=== PATIENT | male | born 1985 | race African-American/Black ===

== ENCOUNTER 2021-10-13 12:09 | Emergency (ER) | payer OTHER, SELFPAY ==
--- NOTE | 2021-10-13 12:13 | ED.WOUNDLAC ---
HPI - Wound/Laceration General Chief Complaint: Wound/Laceration Stated Complaint: Laceration on left Hand Time Seen by Provider: 10/13/21 12:15 Source: patient and RN notes reviewed History of Present Illness HPI narrative: Patient is a 35-year-old male who presents the urgent care with complaints of a laceration to the left hand. Patient states that he cut it with a utility knife trying to cut the bottom of the door. Denies of any other acute complaints or injuries. States that the laceration happened approximately 1 hour prior to arrival. No acute distress noted. Patient aware of the plan of care. Some parts of this dictation were generated by voice recognition software and may contain typographical and/or grammatical inaccuracies. Related Data Home Medications Medication Instructions Recorded Confirmed No Home Medications 10/13/21 10/13/21 Allergies Allergy/AdvReac Type Severity Reaction Status Date / Time No Known Allergies Allergy Verified 10/13/21 12:12 Review of Systems Review of Systems: CONSTITUTIONAL: Denies fever, chills, or sweats. EYES: Denies visual changes, redness, or discharge. ENT: Denies rhinorrhea, congestion, sore throat, or otalgia. CARDIOVASCULAR: Denies chest pain, palpitations, or edema. RESPIRATORY: Denies cough or dyspnea. GASTROINTESTINAL: Denies abdominal pain, nausea, vomiting, or diarrhea. GENITOURINARY: Denies dysuria or hematuria. SKIN: Reports of a laceration to the left hand MUSCULOSKELETAL: Denies back pain, joint pain, or myalgia. NEUROLOGIC: Denies headache, numbness, or weakness. All other systems reviewed are negative, except as documented in HPI. PMFSH Social History Social History Smoking status: Never smoker Alcohol intake: never Comments At the time of my signature, I reviewed and agree with the nursing past medical, surgical, social, and family history. There is no relevant family history pertinent to the patient complaint. Exam Narrative: GENERAL: This is a well-nourished, well-developed patient, in no apparent distress. HEAD: normocephalic, atraumatic. EYES: PERRL. Sclera clear/white. Vision is grossly intact. EARS: External ears normal NOSE: External nose normal with no obvious nasal discharge, nares without redness, no rhinorrhea. THROAT: Mucous membranes moist NECK: Neck supple, non-tender without lymphadenopathy, masses or thyromegaly. SKIN: 4 cm flap/puncture to the dorsal proximal left thumb. Warm, intact with no suspicious lesions or rash, good texture and turgor. NEURO: awake, alert, and oriented to person, place and time. There were no obvious focal neurologic abnormalities. EXTREMITIES: No clubbing, cyanosis, or edema. Positive strong left radial pulse with capillary refill less than 2 seconds. Range of motion to left upper extremity within normal limits. Course Course Level of Care: Express Care Visit Vital Signs Vital signs: Vital Signs Temperature 98.6 F 10/13/21 12:19 Pulse Rate 69 10/13/21 12:19 Respiratory Rate 16 10/13/21 12:19 Blood Pressure 141/78 H 10/13/21 12:19 Pulse Oximetry 100 10/13/21 12:19 Temperature 98.6 F 10/13/21 12:19 Pulse Rate 69 10/13/21 12:19 Respiratory Rate 16 10/13/21 12:19 Blood Pressure 141/78 H 10/13/21 12:19 Pulse Oximetry 100 10/13/21 12:19 Reviewed-patient is informed that they may have pre-hypertension or hypertension based on a blood pressure reading in the department. I recommend the patient call the primary care provider listed on their discharge instructions or a physician of their choice this week to arrange follow-up for further evaluation of possible pre-hypertension or hypertension. Procedures Laceration Laceration 1: Site: hand Side (If applicable): left Size (cm): 2 Description: irregular (Puncture/flap) Depth: simple, single layer Local Anesthetic: lidocaine 1% Amount of anesthesia used (mL): 1.5 Pre-rep
[2021-10-13 12:19] VITALS: BP 141/78; PULSE 69; RESP 16; TEMP 37; O2SAT 100
== END 2021-10-13 12:45 | disposition home or self-care (01) ==
PROVIDERS: Emergency Provider Nurse Practitioner Family
DX: S61.012A Laceration without foreign body of left thumb without damage to nail, initial encounter (principal); W26.0XXA Contact with knife, initial encounter
CPT/HCPCS: 12001; 99212; G0463

== ENCOUNTER 2023-04-02 09:41 | Emergency (ER) | payer SELFPAY ==
--- NOTE | 2023-04-02 09:44 | ED.UPPEXIN ---
HPI - Extremity Injury (Upper) General Chief Complaint: Wound/Laceration Stated Complaint: right elbow injury Time Seen by Provider: 04/02/23 09:43 Source: patient Mode of arrival: ambulatory Limitations: no limitations History of Present Illness HPI narrative: Patient is a 37-year-old male who presents with 2 cm laceration to right elbow no sustained on Thursday. Patient states while at work a piece of metal cut his forearm. Nurse on site Steri-Strips and bandaged. Patient states when he took the bandage off today Steri-Strips also came off. States last tetanus shot was roughly 5 years ago but denies wanting to update tetanus shot today. Related Data Allergies Allergy/AdvReac Type Severity Reaction Status Date / Time No Known Allergies Allergy Verified 04/02/23 09:55 Review of Systems Review of Systems: All systems reviewed & are unremarkable except as noted in HPI and below Constitutional: Constitutional: Denies body ache(s), Denies chills, Denies fatigue, Denies fever(s), Denies headache(s), Denies malaise and Denies weakness Eyes: Eyes: Denies blurry vision, Denies irritation and Denies loss of vision ENT: Denies otalgia, Denies headache(s), Denies nasal discharge, Denies sinus pain and Denies sore throat Cardiovascular: Cardiovascular: Denies chest pain, Denies irregular heart rhythm and Denies dyspnea Respiratory: Respiratory: Denies dyspnea Gastrointestinal: Gastrointestinal: Denies abdominal pain, Denies melena, Denies hematochezia, Denies diarrhea, Denies nausea and Denies vomiting Musculoskeletal: Musculoskeletal: Denies back pain, Denies myalgias and Denies arthralgias Integumentary/Breasts: Skin/Breast: Denies pruritus, Denies rash and Reports wounds Neurologic: Denies headache(s), Denies loss of vision and Denies weakness Psychiatric: Psychiatric: Reports no additional psychiatric complaints Endocrine: Endocrine: Denies fatigue PMFSH Social History Social History Smoking status: Never smoker Alcohol intake: never Comments At time of signature, agree with nursing past medical, surgical, social and family history. There is no relevant family history pertinent to the presenting complaint. Exam Const: General: cooperative, healthy appearing, comfortable, no acute distress and well nourished Nutritional Appearance: well nourished Orientation/consciousness: patient oriented x3 Limitations: no limitations HENMT: Head: normal to inspection, normocephalic and atraumatic Ears: hearing grossly normal bilaterally and external ears normal Face/Nose/Sinus: Normal external nose present, normal facial exam and face symmetric Face and sinus: normal facial exam and face symmetric Mouth: Yes lip normal Eyes: General: appearance normal, both eyes and all related structures Alignment and Position: alignment normal and position normal Periorbital: periorbital findings normal Eyelids: eyelids normal Pupils: Equal, round and reactive pupils present EOM: EOMs intact bilaterally Neck: Neck: normal visual inspection, full ROM and supple Chest: Chest palpation & inspection: normal inspection of the chest Resp: Effort & Inspection: normal respiratory effort and able to speak in complete sentences Auscultation: clear to auscultation bilaterally Cardio: Rate: regular rate Rhythm: regular rhythm Heart sounds: S1 normal heart sound present and S2 normal heart sound present GI: Inspection: normal to inspection Skin: General skin exam: normal color and no rashes or lesions noted Neuro: General: patient oriented x3 and moves all extremities Cranial nerves: Yes Equal, round and reactive pupils present Speech: normal speech Gait exam (Neuro): Normal gait present Extrem: General: normal to inspection, full ROM and no edema Right upper extremity: elbow/forearm laceration forearm proximal posteromedial linear (2 cm), superficial, with motor nerve function intact and with sensation intact; not actively bleeding,
[2023-04-02 09:53] VITALS: BP 122/80; PULSE 73; RESP 18; TEMP 36.5; O2SAT 98
[2023-04-02 09:55] VITALS: BP 122/80; PULSE 73; RESP 18; TEMP 36.5; O2SAT 98
== END 2023-04-02 10:40 | disposition home or self-care (01) ==
PROVIDERS: Emergency Provider Nurse Practitioner Family; PCP Family Medicine
DX: S51.011A Laceration without foreign body of right elbow, initial encounter (principal); W45.8XXA Other foreign body or object entering through skin, initial encounter; Y99.0 Civilian activity done for income or pay
CPT/HCPCS: 99213; G0463

== ENCOUNTER 2024-07-05 09:52 | Emergency (ER) | payer OTHER, SELFPAY ==
[2024-07-05 10:04] VITALS: BP 131/85; PULSE 81; RESP 16; TEMP 36.2; O2SAT 97
--- NOTE | 2024-07-05 10:35 | ED.EYEPROB ---
HPI - Eye Problem General Chief complaint: Eye Problems Stated complaint: right eye red Time Seen by Provider: 07/05/24 10:36 Source: patient, RN notes reviewed and old records reviewed Mode of arrival: ambulatory Limitations: no limitations History of Present Illness HPI Narrative: Patient presents with complaints of excessive right eye tearing and redness. He reports that he gets conjunctivitis frequently, always starts with the same symptoms. He denies any injury, trauma, foreign body, visual disturbance. He denies any a.m. matting. Voices no other concerns or complaints at this time. Has been applying drops at home, variety of drops unknown. Related Data Allergies Allergy/AdvReac Type Severity Reaction Status Date / Time No Known Allergies Allergy Verified 07/05/24 10:19 Review of Systems Review of Systems: All systems reviewed & are unremarkable except as noted in HPI and below Constitutional: Constitutional: Reports no additional constitutional complaints Eyes: Eyes: Reports as per HPI, Reports no additional eye complaints, Denies change in vision, Reports eye discharge, Reports irritation, Denies loss of vision, Denies other visual disturbances and Denies photophobia ENT: Reports system reviewed and no additional complaints, except as documented Cardiovascular: Cardiovascular: Reports no additional cardiovascular complaints Respiratory: Respiratory: Reports no additional respiratory complaints Gastrointestinal: Gastrointestinal: Reports no additional gastrointestinal complaints [facility] Social History Social History Smoking status: Never smoker Alcohol intake: never Comments At the time of my signature, I reviewed and agree with the nursing past medical, surgical, social, and family history. There is no relevant family history pertinent to the patient complaint. Exam Const: General: cooperative, no acute distress, alert and awake Orientation/consciousness: oriented to person, oriented to place and oriented to time HENMT: Head: normal to inspection Eyes: Visual Carrion: normal visual carrion by confrontation Alignment and Position: alignment normal Periorbital: periorbital findings normal Eyelids: eyelids normal Conjunctivae: conjunctival abnormality right conjunctival injection and discharge (clear) Resp: Effort & Inspection: normal respiratory effort and able to speak in complete sentences Auscultation: clear to auscultation bilaterally, no crackles, no rales, no rhonchi and no wheezes Cardio: Palpation: normal PMI Rate: regular rate Rhythm: regular rhythm Heart sounds: S1 normal heart sound present and S2 normal heart sound present Neuro: General: oriented to person, oriented to place and oriented to time Cranial nerves: Yes CN's II-XII intact bilaterally Psych: Appearance: grossly normal Thought process: Normal thought process present Insight: Good insight present (Psych) Judgement: Good judgement present (Psych) Course Course Level of Care: Express Care Visit Vital Signs Vital signs: Vital Signs Temperature 97.1 F L 07/05/24 10:04 Pulse Rate 81 07/05/24 10:04 Respiratory Rate 16 07/05/24 10:04 Blood Pressure 131/85 07/05/24 10:04 Pulse Oximetry 97 07/05/24 10:04 Oxygen Delivery Room Air 07/05/24 10:04 Temperature 97.1 F L 07/05/24 10:04 Pulse Rate 81 07/05/24 10:04 Respiratory Rate 16 07/05/24 10:04 Blood Pressure 131/85 07/05/24 10:04 Pulse Oximetry 97 07/05/24 10:04 Oxygen Delivery Room Air 07/05/24 10:04 Reviewed MDM - Eye Problem MDM Narrative Medical decision making narrative: History and exam consistent with conjunctivitis. Start at [place] drops. Follow with web services professional. Emergency department for new or worse symptoms. Discharge instructions reviewed with patient, as well as provided in writing per nursing staff. The instructions also include specific and strict return/GO TO THE ER as well as f/u information. All questions have been answered, and the patient deny any further questions with discharge and discharge plan. Some parts of this dictation were generated by voice recognition software and may contain typographical and/or grammatical inaccuracies. Differential Diagnosis Differential diagnosis: Likely corneal abrasion, conjunctivitis and subconjunctival hemorrhage Medical Records Attestation: I reviewed the patient's medical records. Discharge Plan Discharge Clinical Impression: Bacterial conjunctivitis Patient Disposition: Home, Self-Care Condition: Stable Instructions: Antibiotic Form, Conjunctivitis (ED) Additional Instructions: Use medications as prescribed. Follow with primary care provider and web services professional. Emergency department for new or worse symptoms Patient Language: Hungarian Prescriptions: New tobramycin 0.3 % drops 1 drp RIGHT EYE Q4H Qty: 5 0RF Follow-up/Referrals: PHYSICIAN,[facility]KL[facility] TECHNICIAN [Primary Care Provider] - Time of Disposition: 10:51
== END 2024-07-05 10:54 | disposition home or self-care (01) ==
PROVIDERS: Emergency Provider Nurse Practitioner Family
DX: H10.9 Unspecified conjunctivitis (principal)
CPT/HCPCS: 99213; G0463

== ENCOUNTER 2024-11-25 08:21 | Emergency (ER) | payer OTHER, SELFPAY ==
[2024-11-25 08:32] VITALS: BP 135/85; PULSE 96; RESP 16; TEMP 36.2; O2SAT 99
--- NOTE | 2024-11-25 08:39 | ED.URI ---
HPI - URI/Sore Throat General Chief Complaint: Upper Respiratory Infection Stated Complaint: sore throat,[place] Source: patient and RN notes reviewed Mode of arrival: ambulatory Limitations: no limitations History of Present Illness HPI Narrative: 38-year-old male presents to [facility] complaining of a sore throat x3 days. He denies any sick contacts. He reports also having headache and body aches. He denies any congestion, fever, ear pain, cough, chest pain, shortness of breath, difficulty swallowing. Has been taking Tylenol for pain. Related Data Allergies Allergy/AdvReac Type Severity Reaction Status Date / Time No Known Allergies Allergy Verified 11/25/24 08:33 Review of Systems Review of Systems: CONSTITUTIONAL: Denies fever, chills, or sweats. Positive for body aches. EYES: Denies visual changes, redness, or discharge. ENT: Denies rhinorrhea, congestion, throat swelling, dysphagia, or otalgia. Positive for sore throat and pain with swallowing. CARDIOVASCULAR: Denies chest pain, palpitations, or edema. RESPIRATORY: Denies cough or dyspnea. GASTROINTESTINAL: Denies abdominal pain, nausea, vomiting, or diarrhea. GENITOURINARY: Denies dysuria or hematuria. SKIN: Denies rash or itching. MUSCULOSKELETAL: Denies back pain, joint pain, or myalgia. NEUROLOGIC: Denies numbness, or weakness. Positive for headaches. PSYCHIATRIC: Denies anxiety or depression. All other systems reviewed are negative, except as documented in HPI. [facility], [place] Social History Social History Smoking status: Never smoker Alcohol intake: never Comments At the time of my signature, I reviewed and agree with the nursing past medical, surgical, social, and family history. There is no relevant family history pertinent to the patient complaint. Exam Narrative: GENERAL: This is a well-nourished, well-developed adult, in no apparent distress. They are non ill-appearing, nontoxic appearing. HEAD: normocephalic, atraumatic. EYES: Sclera clear/white. Vision is grossly intact. EARS: External ears normal, auditory canals clear and without drainage, TMs normal without perforation. Hearing grossly intact. NOSE: External nose normal with no obvious nasal discharge, nares without redness, no rhinorrhea. THROAT: Mucous membranes moist, posterior pharynx is erythematous. Discharge is thick and clear. Uvula is midline. NECK: Neck supple, mild tenderness with mild cervical lymphadenopathy, no masses or thyromegaly. CARDIOVASCULAR: Regular rate and rhythm without murmurs, gallops, or rubs. RESPIRATORY: Clear to auscultation. Breath sounds equal bilaterally. No wheezes, rales, or rhonchi. GASTROINTESTINAL: Abdomen soft, non-tender, nondistended. SKIN: warm, Dry, intact with no suspicious lesions or rash, good texture and turgor. NEURO: awake, alert, and oriented to person, place and time. There were no obvious focal neurologic abnormalities. EXTREMITIES: No joint tenderness, effusion, or edema noted. Course Course Emergency Course: Patient is aware of diagnosis, understands and agrees to treatment plan. Anticipatory guidance given. Patient agrees to follow-up as directed and is aware of reasons to seek care at the emergency department. Portions of this record may have been created with voice recognition software Level of Care: Express Care Visit Vital Signs Vital signs: Vital Signs Temperature 97.1 F L 11/25/24 08:32 Pulse Rate 96 11/25/24 08:32 Respiratory Rate 16 11/25/24 08:32 Blood Pressure 135/85 11/25/24 08:32 Pulse Oximetry 99 11/25/24 08:32 Oxygen Delivery Room Air 11/25/24 08:32 Temperature 97.1 F L 11/25/24 08:32 Pulse Rate 96 11/25/24 08:32 Respiratory Rate 16 11/25/24 08:32 Blood Pressure 135/85 11/25/24 08:32 Pulse Oximetry 99 11/25/24 08:32 Oxygen Delivery Room Air 11/25/24 08:32 Reviewed MDM - URI/Sore Throat MDM Narrative Medical decision making narrative: Rapid strep is positive. Will treat empirically with amoxicillin. Patient denies any difficulty swallowing or difficulty breathing, there is no evidence to suggest a peritonsillar abscess. Uvula is midline. Discussed physical exam findings. Advised supportive measures and signs/symptoms to go to the ER. Pt is appropriate for outpt treatment and f/u. Differential Diagnosis Differential diagnosis: Likely upper respiratory infection, viral infection and pharyngitis (Strep pharyngitis) Lab Data Attestation: I reviewed the patient's lab results. Critical Care Time Critical Care Time Critical Care Time: No Discharge Plan Discharge Clinical Impression: Strep throat Patient Disposition: Home, Self-Care Condition: Stable Instructions: Antibiotic Form, Strep Throat (DC) Additional Instructions: You tested positive for strep throat. ?Please take the amoxicillin as prescribed until gone. ?You will be contagious for 24 hours after starting the medication. ?After 24 hours on antibiotics throw tooth brush away and start using a new one. Wash your sheets and cup/water bottle that is used daily. Do not share drinks. Take Tylenol or Ibuprofen for pain or fever, if able. ?Rest and stay hydrated. ?Follow up with your PCP in 3 days if symptoms are not improving. ?Go to the ER immediately if you develop worsening symptoms such as shortness of breath, difficulty swallowing, excessive drooling. ? Patient Language: Azerbaijani Prescriptions: New amoxicillin 500 mg tablet 500 mg PO Q12H 10 Days Qty: 20 0RF Follow-up/Referrals: Darien Rausch DO [Primary Care Provider] - Time of Disposition: 09:01
[2024-11-25 09:52] LABS: EDSTREPNEGPOS1 Positive (Negative)
== END 2024-11-25 09:07 | disposition home or self-care (01) ==
PROVIDERS: PCP Family Medicine
DX: J02.0 Streptococcal pharyngitis (principal)
CPT/HCPCS: 87880; 99213; G0463